=== PATIENT | male | born 1975 | race Caucasian/White ===

== ENCOUNTER → 2021-06-28 10:30 | Outpatient (CLI) | payer OTHER, SELFPAY ==
--- NOTE | ~2021-06-28 | XR_ITS ---
EXAMINATION: XR shoulder LT min 2V, XR scapula LT, XR_[id number]_CR DATE: 06/28/2021 11:19 INDICATION: Left shoulder pain, anterior left rib pain and pleurodynia post fall 5 days prior. TECHNIQUE: 1. AP internally and externally rotated, AP oblique externally rotated and axillary views of the left shoulder were obtained. 2. AP and lateral views of the left scapula were obtained. 3. Frontal view of the chest and 3 views of the left ribs were obtained. COMPARISON: None FINDINGS: Left shoulder and scapula: Normal alignment. No fracture. Glenohumeral joint is normal. Acromioclavicular joint is normal. Soft tissues are unremarkable. Chest and left ribs: Mild linear discoid atelectasis at the left lower lung zone. Hazy airspace opacity in the left mid to lower lung zone with indistinctness to the left costophrenic angle which could represent a small pos teriorly layering left pleural effusion. Right lung is clear. No pneumothorax or right-sided pleural effusion. Heart size is normal with prominent bilateral paracardial fat pads. Minimally displaced fra ctures at the anterior left second and fifth ribs. IMPRESSION: 1. Minimally displaced anterior left second and fifth ribs. 2. Mild discoid atelectasis in the left lower lung zone with possible small posterior layering left p leural effusion. 3. Normal left scapula and shoulder. Reviewed, dictated and finalized at location B. SION ORDER ANALYST IMPRESSION: 1. Minimally displaced anterior left second and fifth ribs. 2. Mild discoid atelectasis in the left lower lung zone with possible small pos terior layering left pleural effusion. 3. Normal left scapula and shoulder. IMPRESSION: 1. Minimally displaced anterior left second and fifth ribs. 2. Mild discoid atelectasis in the left lower lung zone with possible small pos terior layering left pleural effusion. 3. Normal left scapula and shoulder.
== END ==
PROVIDERS: PCP Emergency Medicine; Visit Provider Emergency Medicine
DX: R07.81 Pleurodynia (principal); M25.512 Pain in left shoulder; M89.8X1 Other specified disorders of bone, shoulder
CPT/HCPCS: 71101; 73010; 73030

== ENCOUNTER 2024-05-28 20:36 | Day surgery (SDC) | payer OTHER, SELFPAY ==
--- NOTE | ~2024-05-28 | XR_ITS ---
EXAMINATION: XR abdomen/kub 1V DATE: 05/29/2024 12:24 INDICATION: Left ureteral stone. TECHNIQUE: A supine view of the abdomen on 2 radiographs was obtained. COMPARISON: CT abdomen and pelvis 05/29/2024 FINDINGS: There is a 5 mm stone in proximal left ureter. There are no dilated loops of bowel. IMPRESSION: 1. 5 mm stone in proximal left ureter. Reviewed, dictated and finalized at location A. TESTER
--- NOTE | ~2024-05-28 | CT_ITS ---
EXAMINATION: CT abdomen pelvis wo con DATE: 05/29/2024 05:28 INDICATION: Flank pain. TECHNIQUE: Computed tomography (CT) of the abdomen and pelvis was performed without intravenous contr ast. Automated exposure control and iterative reconstruction technique were employed. The dose-length product was 1851.04 mGy-cm. COMPARISON: CT abdomen and pelvis 09/20/2018 FINDINGS: The visualized portions of the lung bases demonstrate mild atelectasis. No pleural effusion . The heart size is normal. No pericardial effusion. There is diffuse hepatic steatosis. The gallblad idania, spleen, pancreas, adrenal glands, and right kidney are normal. There is a 5 mm stone in proximal left ureter. There is mild left hydronephrosis. The appendix is fluid-filled and dilated to 13 mm, i ncreased from 7 mm. There are no pathologically enlarged lymph nodes. There is no free intraperitonea l fluid. There is mild thoracic and lumbar spondylosis. IMPRESSION: 1. Acute appendicitis. 2. 5 mm stone in proximal left ureter with mild left hydronephrosis. Reviewed, dictated and finalized at location A. VANCE AND APPEALS COORDINATOR
--- NOTE | ~2024-05-28 | XR_ITS ---
XR retrograde pyelo w/stent LT DATE: 05/29/2024 14:39 INDICATION: Left ureteral stone TECHNIQUE: 6 spot C-arm images of the abdomen 6 seconds total exposure time 1.4740 Gycm2 total DAP COMPARISON: None FINDINGS: Cystoscopic is identified. Contrast material was injected, revealing no apparent hydrourete ronephrosis but some ill-defined filling defect in the left renal pelvic area. Guidewire and subsequently a left internal urinary stent are placed in the left urinary tract, the pr oximal pigtail within the left renal pelvis. IMPRESSION: Left internal urinary stent placement Reviewed, dictated and finalized at Location A. Reviewed, dictated and finalized at location A. NICAL STAFF ASSISTANT
[2024-05-28 21:03] VITALS: BP 132/82; PULSE 94; RESP 16; TEMP 36.5; O2SAT 99
[2024-05-28 23:11] LABS: Basophils Percent Auto 0.3 % (0.2-1.2); Hematocrit 46.9 % (42.0-52.0); Hemoglobin 15.4 g/dL (14.0-18.0); Immature Granulocyte Absolute 0.05 K/mm3 (0.00-0.031); Immature Granulocyte Percent A 0.3 % (0-0.5); Lymphocytes Absolute Auto 0.67 K/mm3 (0.9-3.2); Lymphocytes Percent Auto 4.5 % (18.3-44.2); Mean Corpuscular HGB Conc 32.8 g/dl (32-36); Mean Corpuscular Hemoglobin 27.6 pg (26-34); Mean Corpuscular Volume 84.1 fl (80-100); Mean Platelet Volume 10.8 fl (7.4-10.4); Monocytes Absolute Auto 0.5 K/mm3 (0.1-0.6); Monocytes Percent Auto 3.5 % (2.6-8.5); Neutrophils Absolute Auto 13.8 K/mm3 (1.3-6.7); Neutrophils Percent Auto 91.4 % (45.5-73.1); Platelet Count Result 316 k/mm3 (150-375); Red Blood Count 5.58 M/mm3 (4.6-6.20)
[2024-05-28 23:24] LABS: Alanine Aminotransferase 27 U/L (6-50); Albumin Level 4.8 g/dL (3.5-5.1); Alkaline Phosphatase 99 U/L (38-126); Anion Gap 9 mmol/L (4-12); Aspartate Amino Transferase 25 U/L (17-59); Bilirubin,Total 0.5 mg/dL (0.2-1.3); Blood Urea Nitrogen 17 mg/dL (9-20); Calcium 9.3 mg/dL (8.4-10.2); Carbon Dioxide 26 mmol/L (22-30); Chloride 101 mmol/L (98-107); Estimated CRCL calculation 98 ml/min; Estimated Glomerular Filt Rate > 60; Glucose 130 mg/dL (65-110); Potassium 4.3 mmol/L (3.4-5.0); Sodium 136 mmol/L (137-145)
[2024-05-28 23:27] LABS: Add Urine Microscopic? YES; Appearance Urine Turbid (Clear); Bacteria Urine None Seen /hpf; Bilirubin Urine 1+ (Negative); Blood Urine 2+ (Negative); Calcium Oxalate Crystals Urine Present /hpf; Color Urine Orange (Yellow); Glucose Urine UA Negative (Negative); Hyaline Casts Urine Present /lpf; Ketones Urine Negative (Negative); Leukocyte Esterase Ur 2+ LEU/UL (Negative); Mucus Urine Present /lpf; Need Manual Microscopic Reviewed; Nitrate Urine Positive (Negative); Protein Urine 2+ mg/dL (Negative); RBC Urine >100 /hpf (0-2); Specific Grav Ur 1.035 (1.001-1.035); Squamous Epithelial Cell Urine None Seen /hpf (Few); Urobilinogen Urine 0.2 mg/dL (<2.0)
[2024-05-29] VITALS (25 sets, daily range): BP systolic 113–156; BP diastolic 70–109; PULSE 76–111; RESP 12–26; TEMP 36.2–36.7; O2SAT 90–99
--- NOTE | 2024-05-29 10:22 | ED.MALEGU ---
HPI - Male Genitourinary General Chief complaint: Urogenital-Male Stated complaint: hematuria, back pain Time Seen by Provider: 05/29/24 10:01 History of Present Illness HPI Narrative: 49-year-old male with no pertinent past medical history presenting to the emergency room with chief complaint of left-sided flank pain and left-sided abdominal pain. Patient states he was eating dinner when out of no where he had some sudden-onset flank pain left-sided. Slowly started gradually worsening radiating towards his left abdominal region. Denies any nauseousness, vomiting, diarrhea. He went to the bathroom noted some hematuria which brought him to come to the emergency department for evaluation. Denies any history of abdominal surgeries, kidney stones or any other past medical history aside from anxiety. He was previously in his normal state of health. Denies any right-sided flank right-sided abdominal pain. No chest pain, shortness a breath, nausea, vomiting, diarrhea, constipation, dysuria, urinary discharge. Related Data Allergies Allergy/AdvReac Type Severity Reaction Status Date / Time No Known Allergies Allergy Unknown Verified 05/28/24 20:36 Review of Systems Review of Systems: as reviewed above in HPI [facility] Past Medical History Medical History Acute back pain Joshi's palsy Body mass index [BMI] 35.0-35.9, adult (10/12/17) Eczema Elevated lipids Fall Low testosterone in male Pain Pain of left scapula Rib pain on left side Shoulder pain Vitamin D deficiency Social History Social History Smoking status: Former smoker Smoking end date: 06/22/13 Do You Feel Safe in your Home?: Yes Lack of Transportation: No Lack of Food: Never True Current Housing: I Have Housing Concerned About Future Housing: No Difficulty Paying Gas/Electric Bills: No Difficulty Paying for Meds: No Currently Unemployed: No Education: High School Diploma/GED Difficulty w/ Childcare or Family Care: No Exam Narrative: GENERAL: [Well-appearing, well-nourished, and in no acute distress.] HEAD: [Normocephalic, atraumatic.] EYES: [PERRLA and EOMI.] ENT: Nares clear, no rhinorrhea or epistaxis. Mucous membranes moist. NECK: Supple. CHEST: [Clear to auscultation. No respiratory distress.] HEART: [Regular rate and rhythm]. No murmur heard. [Normal peripheral pulses.] ABDOMEN: [Soft, nondistended], [nontender], [No rigidity or guarding] negative psoas, negative Alvarez's, negative obturator sign EXTREMITIES: Normal range of motion. [No edema.] SKIN: Warm, dry, no rash. NEURO: [No focal deficits]. Alert and oriented [x3.] PSYCH: [Normal mood and affect.] Course Vital Signs Vital signs: Vital Signs Temperature 36.5 C 05/28/24 21:03 Pulse Rate 94 05/28/24 21:03 Respiratory Rate 16 05/28/24 21:03 Blood Pressure 132/82 05/28/24 21:03 Pulse Oximetry 99 05/28/24 21:03 Oxygen Delivery Room Air 05/28/24 21:03 Temperature 36.2 C L 05/29/24 14:38 Pulse Rate 80 05/29/24 16:40 Respiratory Rate 16 05/29/24 16:40 Blood Pressure 127/84 05/29/24 16:40 Pulse Oximetry 94 05/29/24 15:31 Oxygen Delivery Room Air 05/29/24 16:40 Oxygen Flow Rate 8 05/29/24 15:05 MDM - Male Genitourinary MDM Narrative Medical decision making narrative: 49-year-old male with no significant pertinent past medical history presenting with left-sided flank pain associated with mild hematuria. No history of kidney stones. He has a reassuring examination with normal vital signs, no tachycardia, hypoxia, fever, significant blood pressure elevations. He stated that his pain slowly subsided while here in the emergency department. He has a nontender nondistended abdomen this time without any left-sided CVA tenderness, no tenderness in the left or right-sided abdomen quadrants. workup was ordered by protocol including CBC, CMP, urinalysis, urine culture, CT scan without contrast for kidney stone protocol. Differential diagnosis includes kidney stones, renal colic, pyelonephritis, urinary tract infection, musculoskeletal pain. workup revealed a leukocytosis of 15.0, hemoglobin stable 15.4. electrolytes within normal limits, renal function within normal limits, hepatic function largely within normal limits. Glucose 130. Urinalysis shows 2+ blood, 100+ red blood cells, nitrate positive and some white blood cells. Equivocal for potential urinary infection and shows red blood cells consistent with potential kidney stone. CT scan was independently reviewed by myself and also interpreted by radiology. Radiology shows a 5 mm stone left proximal ureter with mild hydronephrosis but also incidentally an acute appendicitis with a fluid-filled dilated appendix at 13 mm, no intraperitoneal fluid or evidence of perforation. Patient was re-evaluated he still had no pain at this time, right-sided abdomen without any tenderness, negative psoas and ribbon sweatband operator signs. No CVA tenderness on the right side either. patient was informed by his CT scan results and we will consult both Urology and General surgery for his concerning CT scans findings. Spoke to the urologist on-call Dr. Bills, I went over patient's CT scan results and clinical exam findings as well as urinalysis and plan for antibiotics at this time with General surgery consult. I was informed that patient would require a stent and this can be done in combination with General surgery if they plan to take him to the operating room. Will await general surgery consult and proceed from there. Spoke with the general surgeon Dr. Lantigua. After we went over patient's imaging studies, laboratory assessment, exam and plan of care and in combination with Urology plan presently is for tentative procedure in the operating room for both appendectomy and ureteral stent. I relayed this to the patient and he was agreeable to stay in the hospital for his procedures. Awaiting OR availability at this time from the ED. Medical Records Attestation: I reviewed the patient's medical records. Lab Data Attestation: I reviewed the patient's lab results. 05/28/24 23:05 05/28/24 23:05 Labs: Lab Results 05/28/24 Range/Units 23:05 WBC 15.0 H (4.5-10.0) K/mm3 RBC 5.58 (4.6-6.20) M/mm3 Hgb 15.4 (14.0-18.0) g/dL Hct 46.9 (42.0-52.0) % MCV 84.1 (80-100) fl MCH 27.6 (26-34) pg MCHC 32.8 (32-36) g/dl RDW 15.0 H (11.5-14.5) % Plt Count 316 (150-375) k/mm3 MPV 10.8 H (7.4-10.4) fl Immature Gran % (Auto) 0.3 (0-0.5) % Neut % (Auto) 91.4 H (45.5-73.1) % Lymph % (Auto) 4.5 L (18.3-44.2) % [place] % (Auto) 3.5 (2.6-8.5) % Eos % (Auto) 0.0 (0-4.4) % Baso % (Auto) 0.3 (0.2-1.2) % Lymph # (Auto) 0.67 L (0.9-3.2) K/mm3 [place] # (Auto) 0.5 (0.1-0.6) K/mm3 Eos # (Auto) 0.0 (0-0.3) K/mm3 Baso # (Auto) 0.0 (0.0-0.1) K/mm3 Abs Immat Gran (auto) 0.05 H (0.00-0.031) K/mm3 Absolute Neuts (auto) 13.8 H (1.3-6.7) K/mm3 Absolute Nucleated RBC 0.000 (0.0-0.012) K/mm3 Nucleated RBC % 0.0 (0.0-0.2) % Sodium 136 L (137-145) mmol/L Potassium 4.3 (3.4-5.0) mmol/L Chloride 101 (98-107) mmol/L Carbon Dioxide 26 (22-30) mmol/L Anion Gap 9 (4-12) mmol/L BUN 17 (9-20) mg/dL Creatinine 1.10 (0.7-1.3) mg/dL Estim Creat Clear Calc 98 ml/min Estimated GFR > 60 (59 - ) Glucose 130 H (65-110) mg/dL Calcium 9.3 (8.4-10.2) mg/dL Total Bilirubin 0.5 (0.2-1.3) mg/dL AST 25 (17-59) U/L ALT 27 (6-50) U/L Alkaline Phosphatase 99 (38-126) U/L Total Protein 8.0 (6.3-8.2) g/dL Albumin 4.8 (3.5-5.1) g/dL Urine Color [place] H (Yellow) Urine Appearance Turbid H (Clear) Urine pH 5.0 (5.0-9.0) Ur Specific [place] 1.035 (1.001-1.035) Urine Protein 2+ H (Negative) mg/dL Urine Glucose (UA) Negative (Negative) mg/dL Urine Ketones Negative (Negative) mg/dL Ur Blood (Man) 2+ H (Negative) Urine Nitrate Positive H (Negative) Urine Bilirubin 1+ H (Negative) Urine Urobilinogen 0.2 (<2.0) mg/dL Add Ur Microanalysis Reviewed Leukocyte Esterase Rfl 2+ H (Negative) KRISTYN/UL Urine RBC >100 H (0-2) /hpf Urine WBC 6-10 H (0-3) /hpf Ur Squamous Epith Cells None seen (Few) /hpf Calcium Oxalate Crystal Present (None) /hpf Urine Bacteria None seen /hpf Urine Casts 6-10 Hyaline Casts Present (None) /lpf Urine Mucus Present /lpf Imaging Data Attestation: I personally reviewed and interpreted this imaging study as follows: My impression: Impressions Abdomen/Pelvis CT 05/29/24 06:06 IMPRESSION: 1. Acute appendicitis. 2. 5 mm stone in proximal left ureter with mild left hydronephrosis. Abdomen X-Ray 05/29/24 12:25 IMPRESSION: 1. 5 mm stone in proximal left ureter. Retrograde Pyelogram 05/29/24 14:46 IMPRESSION: Left internal urinary stent placement Critical Care Time Critical Care Time Critical Care Time: Yes Total Critical Care Time: 35 Discharge Plan Discharge Clinical Impression: Acute appendicitis, Urinary tract obstruction by kidney stone, Abdominal pain Patient Disposition: Still a Patient Condition: Stable
[2024-05-29] MEDS: PIPERACILLIN/TAZ 4.5G/NS 100ML 4.5 GM/100 ML BAG IVPB (10:25)
[2024-05-29] MEDS: LACTATED RINGERS 1,000 ML 999 ML IV CONT (10:25)
--- NOTE | 2024-05-29 11:52 | PM.IMHP ---
H&P: HPI History of Present Illness Date/Time: 05/29/24 11:52 Chief Complaint: Acute appendicitis, left kidney stone Narrative: The patient is a 49-year-old male presenting to the emergency department complaining of left-sided flank pain with hematuria. The patient reports the pain started acutely last night and has been constant since that time. Workup in the emergency department, including imaging, is significant for an obstructing left ureter stone as well as acute appendicitis. Of note, the patient denies any right lower quadrant abdominal pain. He does report that he has no appetite and some mild nausea. Review of Systems Review of Systems: All systems reviewed & are unremarkable except as noted in HPI and below PMFSH Past Medical History Medical History Acute back pain Joshi's palsy Body mass index [BMI] 35.0-35.9, adult (10/12/17) Eczema Elevated lipids Fall Low testosterone in male Pain Pain of left scapula Rib pain on left side Shoulder pain Vitamin D deficiency Social History Social History Smoking status: Former smoker Smoking end date: 06/22/13 Do You Feel Safe in your Home?: Yes Lack of Transportation: No Lack of Food: Never True Current Housing: I Have Housing Concerned About Future Housing: No Difficulty Paying Gas/Electric Bills: No Difficulty Paying for Meds: No Currently Unemployed: No Education: High School Diploma/GED Difficulty w/ Childcare or Family Care: No Meds Home Medications and Allergies Home Medications Medication Instructions Recorded Confirmed Type alprazolam 0.5 mg tablet (Xanax) 0.5 mg PO TID PRN anxiety #30 tabs 02/16/24 02/16/24 Rx escitalopram oxalate 10 mg tablet See Rx Instructions .Route 05/16/24 Rx .COMPLEX #90 tabs Allergies Allergy/AdvReac Type Severity Reaction Status Date / Time No Known Allergies Allergy Unknown Verified 05/28/24 20:36 Vital Signs Vital Signs - 24 hr 05/28/24 21:03 05/29/24 01:50 05/29/24 02:36 Temperature 36.5 C 36.7 C Pulse Rate 94 111 H 104 H Respiratory Rate 16 17 26 H Blood Pressure 132/82 136/85 113/93 H Pulse Oximetry 99 95 96 Oxygen Delivery Room Air 12/08/24 02:46 05/29/24 03:31 05/29/24 03:51 Temperature Pulse Rate 100 94 88 Respiratory Rate 14 13 14 Blood Pressure 125/82 126/90 130/84 Pulse Oximetry 96 90 90 Oxygen Delivery 05/29/24 04:01 05/29/24 04:46 05/29/24 05:01 Temperature Pulse Rate 93 91 96 Respiratory Rate 13 12 15 Blood Pressure 138/88 141/96 H 134/93 H Pulse Oximetry 91 97 95 Oxygen Delivery 05/29/24 05:02 05/29/24 06:15 05/29/24 07:16 Temperature 36.6 C Pulse Rate 93 84 87 Respiratory Rate 15 15 13 Blood Pressure 152/81 H Pulse Oximetry 99 97 92 Oxygen Delivery 05/29/24 08:00 05/29/24 09:00 05/29/24 09:23 Temperature 36.6 C 36.6 C Pulse Rate 87 79 78 Respiratory Rate 13 16 12 Blood Pressure 132/76 128/76 Pulse Oximetry 92 96 Oxygen Delivery 05/29/24 09:30 05/29/24 10:26 05/29/24 11:31 Temperature 36.6 C 36.6 C 36.4 C Pulse Rate 78 85 87 Respiratory Rate 14 12 18 Blood Pressure 148/88 H 156/109 H 136/88 Pulse Oximetry 96 99 96 Oxygen Delivery Exam Const: General: cooperative, no acute distress, uncomfortable and obese HENMT: Head: normal to inspection, normocephalic and atraumatic Eyes: General: appearance normal, both eyes and all related structures Neck: Neck: normal visual inspection and no lymphadenopathy Resp: Auscultation: clear to auscultation bilaterally Cardio: Rate: regular rate Rhythm: regular rhythm GI: Inspection: normal to inspection and distended GI Palp: Yes abdominal tenderness, Yes Soft to palpation and Yes Tenderness to palpation present (GI) Skin: General skin exam: normal color and no rashes or lesions noted Neuro: General: patient oriented x3 and CN's II-XI intact bilaterally Extrem: General: normal to inspection and full ROM H&P: Results Labs Labs: Short CBC 05/28/24 Range/Units 23:05 WBC 15.0 H (4.5-10.0) K/mm3 Hgb 15.4 (14.0-18.0) g/dL Hct 46.9 (42.0-52.0) % Plt Count 316 (150-375) k/mm3 BMP 05/28/24 23:05 Sodium 136 L Potassium 4.3 Chloride 101 Carbon Dioxide 26 BUN 17 Creatinine 1.10 Glucose 130 H Calcium 9.3 Liver Function 05/28/24 Range/Units 23:05 Total Bilirubin 0.5 (0.2-1.3) mg/dL AST 25 (17-59) U/L ALT 27 (6-50) U/L Alkaline Phosphatase 99 (38-126) U/L Albumin 4.8 (3.5-5.1) g/dL Urine 05/28/24 Range/Units 23:05 Urine Color [place] H (Yellow) Urine Appearance Turbid H (Clear) Urine pH 5.0 (5.0-9.0) Ur Specific [place] 1.035 (1.001-1.035) Urine Protein 2+ H (Negative) mg/dL Urine Glucose (UA) Negative (Negative) mg/dL Assessment and Plan Assessment and plan (1) Acute appendicitis: Code(s): K35.80 - Unspecified acute appendicitis Status: Acute Assessment and Plan: A long discussion with patient about findings on CT, will proceed urgent appendectomy, NPO and IV antibiotics for now (2) Kidney stone on left side: Code(s): N20.0 - Calculus of kidney Status: Acute Assessment and Plan: Concurrent procedure with Urology
--- NOTE | 2024-05-29 12:00 | WPDHPUPDATE1 ---
History and Physical Update Update Date/Time: 05/29/24 12:00 History and Physical has been reviewed, including an updated exam of the patient. There are NO changes in the patient's condition. Risks, benefits, and alternatives have been discussed and questions answered. Patient agrees to proceed with procedure.
--- NOTE | 2024-05-29 12:20 | P.CONUR_ITS ---
Assessment and Plan Assessment and plan (1) Kidney stone on left side: Code(s): N20.0 - Calculus of kidney Status: Acute Assessment and Plan: To OR for cystoscopy and left ureteral stent placement. Admit to hospitalist service Megann administered in ER at 1124. Discussed risks and benefits of procedure including postoperative pain, stent discomfort, need for further surgery, inability to place stent, anesthestic complication, he would like to proceed. We will plan for left ureteral extracorporeal shockwave lithotripsy as an outpatient in 1-2 weeks pending result of his urine culture. We discussed risk including sepsis, postoperative pain, steinstrasse, perinephric hematoma, incomplete treatment requiring further surgery. He is counseled to avoid NSAIDS, aspirins and he denies use of blood thinners. Urology Consult Note HPI Date Seen: 05/29/24 Requesting Physician: Rohini Lantigua MD Primary Care Provider: Miles Ashton MD Consult Narrative Narrative: Yung Fleming is a 49 year old male who presents with about 24 hours of left flank pain with nausea/vomiting but no fevers/chills. He denies history of nephrolithiasis. He is also found to have acute appendicitis. Review of Systems Review of Systems: neg Constitutional: Constitutional: Reports as per HPI ENT: Reports system reviewed and no additional complaints, except as documented Cardiovascular: Cardiovascular: Reports as per HPI Respiratory: Respiratory: Reports as per HPI Gastrointestinal: Gastrointestinal: Reports abdominal pain, Reports nausea and Reports vomiting Genitourinary: Genitourinary: Reports hematuria and Reports flank pain (Left) Integumentary/Breasts: Skin/Breast: Reports system reviewed and no additional complaints, except as docu PMFSH Past Medical History Medical History Acute back pain Joshi's palsy Body mass index [BMI] 35.0-35.9, adult (10/12/17) Eczema Elevated lipids Fall Low testosterone in male Pain Pain of left scapula Rib pain on left side Shoulder pain Vitamin D deficiency Social History Social History Smoking status: Former smoker Smoking end date: 06/22/13 Do You Feel Safe in your Home?: Yes Lack of Transportation: No Lack of Food: Never True Current Housing: I Have Housing Concerned About Future Housing: No Difficulty Paying Gas/Electric Bills: No Difficulty Paying for Meds: No Currently Unemployed: No Education: High School Diploma/GED Difficulty w/ Childcare or Family Care: No Meds Home Medications and Allergies Home Medications Medication Instructions Recorded Confirmed Type alprazolam 0.5 mg tablet (Xanax) 0.5 mg PO TID PRN anxiety #30 tabs 02/16/24 02/16/24 Rx escitalopram oxalate 10 mg tablet See Rx Instructions .Route 05/16/24 Rx .COMPLEX #90 tabs Allergies Allergy/AdvReac Type Severity Reaction Status Date / Time No Known Allergies Allergy Unknown Verified 05/28/24 20:36 Vital Signs Vital Signs - 24 hr 05/28/24 21:03 05/29/24 01:50 05/29/24 02:36 Temperature 97.7 F 98.1 F Pulse Rate 94 111 H 104 H Respiratory Rate 16 17 26 H Blood Pressure 132/82 136/85 113/93 H Pulse Oximetry 99 95 96 Oxygen Delivery Room Air 05/29/24 02:46 05/29/24 03:31 05/29/24 03:51 Temperature Pulse Rate 100 94 88 Respiratory Rate 14 13 14 Blood Pressure 125/82 126/90 130/84 Pulse Oximetry 96 90 90 Oxygen Delivery 05/29/24 04:01 05/29/24 04:46 05/29/24 05:01 Temperature Pulse Rate 93 91 96 Respiratory Rate 13 12 15 Blood Pressure 138/88 141/96 H 134/93 H Pulse Oximetry 91 97 95 Oxygen Delivery 05/29/24 05:02 05/29/24 06:15 05/29/24 07:16 Temperature 97.8 F Pulse Rate 93 84 87 Respiratory Rate 15 15 13 Blood Pressure 152/81 H Pulse Oximetry 99 97 92 Oxygen Delivery 05/29/24 08:00 05/29/24 09:00 05/29/24 09:23 Temperature 97.8 F 97.9 F Pulse Rate 87 79 78 Respiratory Rate 13 16 12 Blood Pressure 132/76 128/76 Pulse Oximetry 92 96 Oxygen Delivery 05/29/24 09:30 05/29/24 10:26 05/29/24 11:31 Temperature 97.9 F 97.9 F 97.6 F Pulse Rate 78 85 87 Respiratory Rate 14 12 18 Blood Pressure 148/88 H 156/109 H 136/88 Pulse Oximetry 96 99 96 Oxygen Delivery Exam Narrative: NAD, A&Ox3 RRR eWOB S/NT/ND 2+DP Results Labs 05/28/24 23:05 05/28/24 23:05 Labs: Short CBC 05/28/24 Range/Units 23:05 WBC 15.0 H (4.5-10.0) K/mm3 Hgb 15.4 (14.0-18.0) g/dL Hct 46.9 (42.0-52.0) % Plt Count 316 (150-375) k/mm3 BMP 05/28/24 23:05 Sodium 136 L Potassium 4.3 Chloride 101 Carbon Dioxide 26 BUN 17 Creatinine 1.10 Glucose 130 H Calcium 9.3 Liver Function 05/28/24 Range/Units 23:05 Total Bilirubin 0.5 (0.2-1.3) mg/dL AST 25 (17-59) U/L ALT 27 (6-50) U/L Alkaline Phosphatase 99 (38-126) U/L Albumin 4.8 (3.5-5.1) g/dL Urine 05/28/24 Range/Units 23:05 Urine Color [place] H (Yellow) Urine Appearance Turbid H (Clear) Urine pH 5.0 (5.0-9.0) Ur Specific [place] 1.035 (1.001-1.035) Urine Protein 2+ H (Negative) mg/dL Urine Glucose (UA) Negative (Negative) mg/dL
--- NOTE | 2024-05-29 12:34 | WPDANESEPPF ---
Anes - Initial Pre Proc Eval Procedure: Operation Date: 05/29/24 13:30 Proposed Procedures p Laparoscopic Appendectomy - Rohini Lantigua MD s Cysto, RPG, Stone Ext, Stent Placement - Luis Bills MD Date/Time: 05/29/24 12:34 Surgeon: Rohini Lantigua MD Pre Op Diagnosis: hematuria, back pain Patient Data Age: 49 Gender: M Height: 1.8 m Weight: 124 kg Last Vital Signs Temp 97.6 F 05/29/24 11:31 Pulse 87 05/29/24 11:31 Resp 18 05/29/24 11:31 BP 136/88 05/29/24 11:31 Pulse Ox 96 05/29/24 11:31 O2 Del Method Room Air 05/28/24 21:03 Allergies Allergy/AdvReac Type Severity Reaction Status Date / Time No Known Allergies Allergy Unknown Verified 05/28/24 20:36 Home Medications Medication Instructions Recorded Confirmed Type alprazolam 0.5 mg tablet (Xanax) 0.5 mg PO TID PRN anxiety #30 tabs 02/16/24 02/16/24 Rx escitalopram oxalate 10 mg tablet See Rx Instructions .Route 05/16/24 Rx .COMPLEX #90 tabs Laboratory Tests 05/28/24 23:05 WBC 15.0 H K/mm3 (4.5-10.0) RBC 5.58 M/mm3 (4.6-6.20) Hgb 15.4 g/dL (14.0-18.0) Hct 46.9 % (42.0-52.0) MCV 84.1 fl (80-100) MCH 27.6 pg (26-34) MCHC 32.8 g/dl (32-36) RDW 15.0 H % (11.5-14.5) Plt Count 316 k/mm3 (150-375) MPV 10.8 H fl (7.4-10.4) Immature Gran % (Auto) 0.3 % (0-0.5) Neut % (Auto) 91.4 H % (45.5-73.1) Lymph % (Auto) 4.5 L % (18.3-44.2) [place] % (Auto) 3.5 % (2.6-8.5) Eos % (Auto) 0.0 % (0-4.4) Baso % (Auto) 0.3 % (0.2-1.2) Lymph # (Auto) 0.67 L K/mm3 (0.9-3.2) [place] # (Auto) 0.5 K/mm3 (0.1-0.6) Eos # (Auto) 0.0 K/mm3 (0-0.3) Baso # (Auto) 0.0 K/mm3 (0.0-0.1) Abs Immat Gran (auto) 0.05 H K/mm3 (0.00-0.031) Absolute Neuts (auto) 13.8 H K/mm3 (1.3-6.7) Absolute Nucleated RBC 0.000 K/mm3 (0.0-0.012) Nucleated RBC % 0.0 % (0.0-0.2) Sodium 136 L mmol/L (137-145) Potassium 4.3 mmol/L (3.4-5.0) Chloride 101 mmol/L (98-107) Carbon Dioxide 26 mmol/L (22-30) Anion Gap 9 mmol/L (4-12) BUN 17 mg/dL (9-20) Creatinine 1.10 mg/dL (0.7-1.3) Estim Creat Clear Calc 98 ml/min Estimated GFR > 60 (59 - ) Glucose 130 H mg/dL (65-110) Calcium 9.3 mg/dL (8.4-10.2) Total Bilirubin 0.5 mg/dL (0.2-1.3) AST 25 U/L (17-59) ALT 27 U/L (6-50) Alkaline Phosphatase 99 U/L (38-126) Total Protein 8.0 g/dL (6.3-8.2) Albumin 4.8 g/dL (3.5-5.1) Urine Color [place] H (Yellow) Urine Appearance Turbid H (Clear) Urine pH 5.0 (5.0-9.0) Ur Specific [place] 1.035 (1.001-1.035) Urine Protein 2+ H mg/dL (Negative) Urine Glucose (UA) Negative mg/dL (Negative) Urine Ketones Negative mg/dL (Negative) Ur Blood (Man) 2+ H (Negative) Urine Nitrate Positive H (Negative) Urine Bilirubin 1+ H (Negative) Urine Urobilinogen 0.2 mg/dL (<2.0) Add Ur Microanalysis Reviewed Leukocyte Esterase Rfl 2+ H KRISTYN/UL (Negative) Urine RBC >100 H /hpf (0-2) Urine WBC 6-10 H /hpf (0-3) Ur Squamous Epith Cells None seen /hpf (Few) Calcium Oxalate Crystal Present /hpf (None) Urine Bacteria None seen /hpf Urine Casts 6-10 Hyaline Casts Present /lpf (None) Urine Mucus Present /lpf Patient hx anesthesia problems: none Family hx anesthesia problems: none Results Review: All pre-operative results and documents have been reviewed as part of the pre-operative evaluation. [facility] Past Medical History Medical History Acute back pain Joshi's palsy Body mass index [BMI] 35.0-35.9, adult (10/12/17) Eczema Elevated lipids Fall Low testosterone in male Pain Pain of left scapula Rib pain on left side Shoulder pain Vitamin D deficiency Social History Social History Smoking status: Former smoker Smoking end date: 06/22/13 Do You Feel Safe in your Home?: Yes Lack of Transportation: No Lack of Food: Never True Current Housing: I Have Housing Concerned About Future Housing: No Difficulty Paying Gas/Electric Bills: No Difficulty Paying for Meds: No Currently Unemployed: No Education: High School Diploma/GED Difficulty w/ Childcare or Family Care: No Anes - Eval Final PreProcedure Day of Procedure 05/29/24 12:34 Patient weight: obese Heart: regular rate and rhythm Lungs: clear to auscultation Airway: Mallampati scale class II Neurological: alert and oriented Last oral intake: >/= 8 hours ASA classification: III Emergent: no Anesthetic plan: proceed Anesthesia type and monitoring: general ETT and standard monitoring Results Review: All pre-operative results and documents have been reviewed as part of the pre-operative evaluation. Pt vapes daily, suspect PETER but never been eval. Pt can walk his son to school 4 x weekly, 30 mins, no cp or sob. BMI 38. Informed Consent: The patient's anesthetic plan and its attendant risks and benefits were discussed with the patient/family/POA. Questions were solicited and answers provided to the satisfaction of the patient/family/POA.
[2024-05-29] MEDS: BUPIVACAINE/EPINEPHRINE 0.5% 30 ML VIAL INFILTRATE (13:59)
--- NOTE | 2024-05-29 14:11 | W.PM.PROC2 ---
Procedure Note - Detailed Date of Procedure 05/29/24 Pre-op Diagnosis acute appendicitis, obstructing left kidney stone Post-op Diagnosis Same Procedure Performed Laparoscopic appendectomy Surgeon Rohini Lantigua MD Anesthesia General Indications 49-year-old male presenting to the emergency department complaining of left lower abdominal pain, hematuria. Workup significant for acute appendicitis, obstructing left kidney stone. Findings Acute uncomplicated appendicitis Description of Procedure The patient was taken to the operating room and placed in the supine position. After adequate induction of general anesthesia, the patient was prepped and draped in the normal sterile fashion. A time-out was then done to verify the patient's identity, as well as the procedure being performed. I began by making a 5 mm incision in the infraumbilical region. Through this a Veress needle was placed in the peritoneal cavity and CO2 gas was insufflated. After adequate pneumoperitoneum was achieved, the Veress needle was removed and a 5 mm port trocar was placed through this incision. I then placed the laparoscopic through this trocar and under direct visualization placed 2 further 5 mm suprapubic port, as well as an additional 12 mm port in the left lower abdomen. At this point, the cecum was identified and retracted both medially and cephalad. This allowed us to expose the appendix. The appendix was noted to be inflamed and injected, however no obvious perforation was noted. I was then able to grasp the tip of the appendix and retract this laterally and anteriorly. This allowed us to expose the base of the appendix with the cecum. At this point I created a window between the appendix and the mesoappendix using a [place] dissector. Once accomplished, I transected the mesoappendix with a white vascular staple load. The stapler was then re-loaded with a blue thick tissue staple load and this was used to transect the base of the appendix with the cecum. I then placed the appendiceal specimen in an endo-pouch and removed this through the 12 mm port site. The specimen will now be sent to pathology for further review. I then copiously irrigated the right lower quadrant. No other pathology was noted and both staple lines were noted to be intact and hemostatic. I then proceeded to close the fascia of the 12 mm left lower quadrant port site with a Bill cone an 0 Vicryl suture. The abdomen was then desufflated and all ports removed. All port sites were then closed with 4-0 Monocryl subcuticular suture. Dermabond was placed on all wounds. The patient tolerated the procedure well. Please note that Urology then proceeded with their portion of procedure. Please see their operative report for details. Estimated Blood Loss 5 Drains No Packing No Pathology Yes Complications No immediate complications Condition Stable Disposition PACU [facility] Billing Surgery - Charge Forward: Surgery Billing
--- NOTE | 2024-05-29 14:30 | W.PM.PROC2 ---
Procedure Note - Detailed Date of Procedure 05/29/24 Pre-op Diagnosis Left ureteral stone [N20.1] Post-op Diagnosis Same Procedure Performed 1. Cystoscopy and left ureteral stent placement 2. Left retrograde pyelogram 3. Fluoroscopy with interpretation of images, less than 1 hour Surgeon Luis Bills MD Anesthesia General Indications This is a pleasant 49M who presents with 24 hours of left flank pain, nausea, vomiting. He denies fevers, chills or difficulty voiding. He is also found to have acute appendicitis. Findings 1. No bladder masses, lesions or stones. 2. Moderate hydronephrosis with a 5 mm proximal stone noted, no other filling defects. 3. Appropriate placement of ureteral stent. Description of Procedure After a discussion of benefits and risks, the patient offered informed written consent. He was taken to the operating and placed on table in supine position. Dr. Lantigua performed appendectomy, upon completion, the patient was transferred to the dorsal lithotomy position and prepped and draped. A 22F rigid cystourethroscope was placed and pancystoscopy was performed, there were no bladder masses or lesions. The left ureteral orifice was approached and a Sensor wire advanced to the renal pelvis. A 5F open-ended ureteral catheter was advanced into the distal ureter and a retrograde pyelogram was performed with the aforementioned findings. The cahteter was removed and a 6F variable length stent was placed and deployed. The bladder was emptied, the cystoscope removed. Implants 6F variable length ureteral stent on left. Estimated Blood Loss 5 Condition Stable Disposition PACU
[2024-05-29] MEDS: LACTATED RINGERS 1,000 ML 30 ML IV CONT ×2 (14:38→14:44)
[2024-05-29] MEDS: fentaNYL CITRATE INJ (*CRX) 100 MCG/2 ML VIAL 25 MCG IV PUSH ×4 (15:09→15:25)
[2024-05-29] MEDS: oxyCODONE HCL (*CRX) 5 MG TAB IR PO (15:58)
== END 2024-05-29 16:54 | disposition home or self-care (01) ==
LOC: ANHED 05-29 10:06 → ANHSURGERY 05-29 11:05
PROVIDERS: Emergency Medicine; Urology; Emergency Provider Student in an Organized Health Care Education/Training Program; PCP Emergency Medicine; Visit Provider Surgery
PROC: 0DTJ4ZZ Resection of Appendix, Percutaneous Endoscopic Approach (ICD-10-PCS; CPT 44970; principal; 2024-05-29 13:30)
PROC: (CPT 52352; 2024-05-29 13:30)
DX: N13.2 Hydronephrosis with renal and ureteral calculous obstruction (principal); K35.80 Unspecified acute appendicitis; E66.9 Obesity, unspecified; Z68.38 Body mass index [BMI] 38.0-38.9, adult; Z87.891 Personal history of nicotine dependence
CPT/HCPCS: 44970; 52332; 36415; 74018; 74176; 74420; 80053; 81001; 85025; 87086; 88304; 96365; 99285; A9270; C1758; C1769; C2617; J0330; J1100; J2250; J2270; J2405; J2543; J2704; J3010; J7120; Q9966

== ENCOUNTER 2025-02-14 11:25 | Outpatient (CLI) | payer OTHER, SELFPAY ==
--- NOTE | ~2025-02-14 | CT_ITS ---
EXAMINATION: CT abdomen pelvis wo jonathan, 02/14/2025 11:27 CDT HISTORY: Unspecified abdominal pain COMPARISON: Comparison 07/30/2023. TECHNIQUE: CT scan of the abdomen and pelvis was performed without IV contrast. One or more of the following dose reduction techniques were used: automated exposure control, adjustment of the mA and/or kV according to patient size, use of iterative reconstruction technique. Unless otherwise stated, incidental findings do not require dedicated follow up imaging FINDINGS: CT abdomen: LUNG BASES: The lung bases are clear. The visualized portions of the heart and pericardium are unremarkable. LIVER: Unremarkable, liver contours intact, no lesions. SPLEEN: Unremarkable, no splenomegaly. KIDNEYS: Right Kidney: Unremarkable. No calculi. No hydronephrosis. Left Kidney: Unremarkable. No calculi. No hydronephrosis ADRENAL GLANDS: Unremarkable. PANCREAS: Unremarkable. GALLBLADDER/BILIARY: Minimal cholelithiasis. STOMACH AND ESOPHAGUS: Visualized stomach and esophagus within normal limits. BOWEL/MESENTERY: Moderate fecal content, no colitis or diverticulitis. Postappendectomy. Mesentery normal. Small bowel normal. ADENOPATHY/RETROPERITONEUM: No lymphadenopathy. AORTA/VASCULATURE: Normal caliber aorta. FREE FLUID OR FREE AIR: None. CT pelvis: SOLID ORGANS/REPRODUCTIVE: Unremarkable. BLADDER: Within normal limits. OSSEOUS STRUCTURES: No acute osseous abnormality.No suspicious lesions. OVERLYING SOFT TISSUES: Unremarkable. IMPRESSION: 1. No etiology identified to explain the patient's symptoms. Follow-up suggested if symptoms persist. Reviewed, dictated and finalized at location A. IMPRESSION: 1. No etiology identified to explain the patient's symptoms. Follow-up suggeste d if symptoms persist.
== END 2025-02-14 11:26 | disposition home or self-care (01) ==
LOC: MICIMG 11:26
PROVIDERS: PCP Emergency Medicine; Visit Provider Emergency Medicine
DX: R10.9 Unspecified abdominal pain (principal)
CPT/HCPCS: 74176